=== PATIENT | female | born 1935 | race Hispanic/Latino ===

== ENCOUNTER 2017-01-14 21:10 | Emergency (ER) | payer MEDICARE ==
[2017-01-14 21:20] VITALS: BMI 37.3
[2017-01-14 21:25] VITALS: BP 159/93; PULSE 75; RESP 18; O2SAT 96
--- NOTE | 2017-01-14 21:27 | ED PDOC ---
Arrival/HPI - General Chief Complaint: Lower Extremity Problem/Injury Time Seen by Provider: 01/14/17 21:23 Historian: Patient - History of Present Illness Narrative History of Present Illness (Text): 01/14/17 21:23 81 y/o female, pmh including htn, allergic to statins/macrolids and fluoroquinolones, c/o lt. foot 2nd digit toe pain x 2 days s/p staple gun dropped and hit on the lt. foot 2nd toe without shoe on. Pt. stated that she re injured it today with shoe on by another person step on the lt. foot 2nd toe , able to bear weight but with pain, no numbness or tingling, no skin breaking, no rash, no calf pain, no other medical or psychological complaints. Past Medical History - Provider Review Nursing Documentation Reviewed: Yes - Infectious Disease Hx of Infectious Diseases: None - Tetanus Immunization Tetanus Immunization: Unknown - Cardiac Hx Cardiac Disorders: Yes Hx Hypertension: Yes - Pulmonary Hx Respiratory Disorders: Yes Hx Chronic Obstructive Pulmonary Disease (COPD): Yes Hx Pneumonia: Yes (x 6) - Neurological Hx Neurological Disorder: No - HEENT Hx HEENT Disorder: No Hx Cataracts: Yes - Hematological/Oncological Hx Cancer: Yes (SKIN CA/face) - Integumentary Hx Dermatological Disorder: No - Musculoskeletal/Rheumatological Hx Arthritis: Yes - Gastrointestinal Hx Clostridium Difficile: Yes Hx Diverticulitis: Yes Other/Comment: infection in intestines; hernia x 3 - Genitourinary/Gynecological Hx Genitourinary Disorders: No - Psychiatric Hx Psychophysiologic Disorder: No Hx Substance Use: No - Surgical History Hx Cataract Extraction: Yes Hx Eye Surgery: Yes Hx Orthopedic Surgery: Yes (heel) Hx Tonsillectomy: Yes Other/Comment: laser eye surgery - Anesthesia Hx Anesthesia: Yes Hx Anesthesia Reactions: Yes Hx Malignant Hyperthermia: No - Suicidal Assessment Feels Threatened In Home Enviroment: No Family/Social History - Physician Review Nursing Documentation Reviewed: Yes Family/Social History: Unknown Family HX Smoking Status: Former Smoker Hx Alcohol Use: No Hx Substance Use: No Hx Substance Use Treatment: No Allergies/Home Meds Allergies/Adverse Reactions: Allergies azithromycin [From Zithromax] Allergy (Verified 10/16/15 18:51) ITCHING ciprofloxacin [From Cipro] Allergy (Verified 10/16/15 18:51) ITCHING simvastatin Allergy (Verified 10/16/15 18:51) ITCHING Home Medications: Home Meds Medication Instructions Recorded Confirmed Losartan Potassium [Cozaar] 100 mg PO DAILY 10/16/15 01/14/17 Ranitidine HCl [Zantac] 150 mg PO DAILY 10/16/15 01/14/17 Review of Systems - Review of Systems Constitutional: absent: Fatigue, Fevers Eyes: absent: Vision Changes ENT: absent: Hearing Changes Respiratory: absent: SOB, Cough Cardiovascular: absent: Chest Pain Gastrointestinal: absent: Abdominal Pain, Nausea, Vomiting Musculoskeletal: Arthralgias, Myalgias. absent: Back Pain, Neck Pain, Joint Swelling Skin: absent: Rash, Pruritis Neurological: absent: Headache, Dizziness Physical Exam Vital Signs Reviewed: Yes Vital Signs Temp Pulse Resp BP Pulse Ox 01/14/17 22:22 98.0 F 01/14/17 21:25 75 18 159/93 H 96 Temperature: Afebrile Blood Pressure: Normal Pulse: Regular Respiratory Rate: Normal Appearance: Positive for: Well-Appearing, Non-Toxic, Comfortable Pain Distress: Moderate Mental Status: Positive for: Alert and Oriented X 3 - Systems Exam Head: Present: Atraumatic, Normocephalic Pupils: Present: PERRL Extroacular Muscles: Present: EOMI Conjunctiva: Present: Normal Mouth: Present: Moist Mucous Membranes Neck: Present: Normal Range of Motion Respiratory/Chest: Present: Clear to Auscultation, Good Air Exchange. No: Respiratory Distress, Accessory Muscle Use Cardiovascular: Present: Regular Rate and Rhythm, Normal S1, S2. No: Murmurs Abdomen: Present: Normal Bowel Sounds. No: Tenderness, Distention, Peritoneal Signs Back: Present: Normal Inspection Upper Extremity: Present: Normal Inspection. No: Cyanosis, Edema Lower Extremity: Present: Normal Inspection, Other (Lt foot: +ttp on the 2nd digit toe with skin intact, no laceration or abrasion, FROM without limitation, sensation intact, motor 5/5, +DPPT pulses, capillary refill<2 seconds, neurovascular intact. ). No: Edema Neurological: Present: GCS=15, Speech Normal, Motor Func Grossly Intact, Gait Normal, Memory Normal Skin: Present: Warm, Dry, Normal Color. No: Rashes Psychiatric: Present: Alert, Oriented x 3, Normal Insight, Normal Concentration Medical Decision Making ED Course and Treatment: 01/14/17 21:28 -lt. foot 2nd digit xray -pt. refused pain med -observe and reassess 01/14/17 22:20 -xray confirmed the fracture, monty tapping and post op shoe, not a crutches candidate and preferred cane. -Discharge home with monty tapping, post op shoe, crutches, take over the counter pain medication including tylenol as needed, follow up with your own pmd and dry starch operator within 2 days, return to the ER for any new or worsening signs or symptoms. - RAD Interpretation Radiology Orders: 01/14/17 21:27 FOOT LEFT 2ND DIGIT (TOE) [RAD] Stat PROCEDURE: Left Foot Radiographs. HISTORY: lt. foot 2nd toe pain COMPARISON: None. FINDINGS: BONES: There is an acute nondisplaced fracture in the neck of the proximal phalanx of the 2nd toe with surrounding soft tissue swelling. There is diffuse bone demineralization. JOINTS: Normal. SOFT TISSUES: Normal. OTHER FINDINGS: None. IMPRESSION: Acute nondisplaced fracture in the neck of the proximal phalanx of the 2nd toe with surrounding soft tissue swelling. Bakery Chef: Radiologist - PA / CONTRACT SPECIALIST / Resident Statement / has reviewed & agrees with the documentation as recorded. Disposition/Present on Arrival - Present on Arrival Any Indicators Present on Arrival: No History of DVT/PE: No History of Uncontrolled Diabetes: No Urinary Catheter: No History of Decub. Ulcer: No History Surgical Site Infection Following: None - Disposition Have Diagnosis and Disposition been Completed?: Yes Diagnosis: Toe injury, Toe pain, Toe fracture Disposition: HOME/ ROUTINE Disposition Time: 21:29 Patient Plan: Discharge Condition: GOOD Additional Instructions: -Discharge home with monty tapping, post op shoe, crutches, take over the counter pain medication including tylenol as needed, follow up with your own pmd and dry starch operator within 2 days, return to the ER for any new or worsening signs or symptoms. Prescriptions: Acetaminophen [Tylenol Extra Strength] 500 mg PO QID PRN #30 tablet PRN Reason: Other Referrals: Flo Bagley MD [Primary Care Provider] - Follow up with primary Chandu Chairez DPM [Staff Provider] - Follow up with primary Forms: [employer] (Mozambican)
[2017-01-14 22:22] VITALS: TEMP 98
--- NOTE | 2017-01-15 11:16 | RAD ---
PROCEDURE: Left Foot Radiographs. HISTORY: lt. foot 2nd toe pain COMPARISON: None. FINDINGS: BONES: There is an acute nondisplaced fracture in the neck of the proximal phalanx of the 2nd toe with surrounding soft tissue swelling. There is diffuse bone demineralization. JOINTS: Normal. SOFT TISSUES: Normal. OTHER FINDINGS: None. IMPRESSION: Acute nondisplaced fracture in the neck of the proximal phalanx of the 2nd toe with surrounding soft tissue swelling.
== END 2017-01-14 23:45 | disposition home or self-care (01) ==
LOC: ED 21:10
DX: S92.515A Nondisplaced fracture of proximal phalanx of left lesser toe(s), initial encounter for closed fracture (principal); W20.8XXA Other cause of strike by thrown, projected or falling object, initial encounter; M79.672 Pain in left foot

== ENCOUNTER 2017-04-20 11:22 | Observation (INO) | payer MEDICARE ==
[2017-04-20 11:33] VITALS: BMI 38.4
[2017-04-20] MEDS ORDERED: Morphine 4 mg/ml ISec IVP STA (11:49)
[2017-04-20] MEDS ORDERED: Sodium Chloride 0.9% 500 ML IV STA (11:49)
--- NOTE | 2017-04-20 12:00 | ED PDOC ---
Arrival/HPI - General Chief Complaint: Abdominal Pain Time Seen by Provider: 04/20/17 11:38 Historian: Patient, Family (daughter) - History of Present Illness Narrative History of Present Illness (Text): 04/20/17 11:40 Lamar Olson is a 81 year old female, whose past medical history includes hypertension, COPD, and diverticulitis, who presents to the emergency department complaining of abdominal pain since 1 month. Patient reports her PMD advised her to come to the emergency department for evaluation. She states the pain is worse at night and after eating. Additionally, she states the pain has given her nausea and episodic shortness of breath along with epigastric discomfort. Patient also complains of being constipated and her last BM was 1 day ago. Patient denies chest pain, headache, weight loss, fever, chills, cough , vomiting, diarrhea, dysuria, hematuria, frequency, flank pain, or vaginal discharge. PMD: Dr. Bagley Time/Duration: > month Symptom Onset: Gradual Symptom Course: Intermittent Quality: Stabbing, Cramping Severity Level: 10, Severe Modifying Factors (Text): worse at night or after eating Past Medical History - Provider Review Nursing Documentation Reviewed: Yes - Travel History Have you recently traveled outside [place] w/in the past 3 mons?: No - Infectious Disease Hx of Infectious Diseases: None - Tetanus Immunization Tetanus Immunization: Unknown - Cardiac Hx Cardiac Disorders: Yes Hx Hypertension: Yes - Pulmonary Hx Respiratory Disorders: Yes Hx Chronic Obstructive Pulmonary Disease (COPD): Yes Hx Pneumonia: Yes (x 6) - Neurological Hx Neurological Disorder: No - HEENT Hx HEENT Disorder: No Hx Cataracts: Yes - Hematological/Oncological Hx Cancer: Yes (SKIN CA/face) - Integumentary Hx Dermatological Disorder: No - Musculoskeletal/Rheumatological Hx Arthritis: Yes - Gastrointestinal Hx Clostridium Difficile: Yes Hx Diverticulitis: Yes Other/Comment: infection in intestines; hernia x 3 - Genitourinary/Gynecological Hx Genitourinary Disorders: No - Psychiatric Hx Psychophysiologic Disorder: No Hx Substance Use: No - Surgical History Hx Cataract Extraction: Yes Hx Eye Surgery: Yes Hx Orthopedic Surgery: Yes (heel) Hx Tonsillectomy: Yes Other/Comment: laser eye surgery - Anesthesia Hx Anesthesia: Yes Hx Anesthesia Reactions: Yes Hx Malignant Hyperthermia: No - Suicidal Assessment Feels Threatened In Home Enviroment: No Family/Social History - Physician Review Nursing Documentation Reviewed: Yes Family/Social History: Unknown Family HX Smoking Status: Former Smoker Hx Alcohol Use: No Hx Substance Use: No Hx Substance Use Treatment: No Allergies/Home Meds Allergies/Adverse Reactions: Allergies azithromycin [From Zithromax] Allergy (Verified 04/20/17 11:57) ITCHING ciprofloxacin [From Cipro] Allergy (Verified 04/20/17 11:57) ITCHING simvastatin Allergy (Verified 04/20/17 11:57) ITCHING Home Medications: Home Meds Medication Instructions Recorded Confirmed Losartan Potassium [Cozaar] 100 mg PO DAILY 10/16/15 04/20/17 Furosemide [Lasix] 20 mg PO PRN PRN 04/20/17 04/20/17 Review of Systems - Review of Systems Constitutional: absent: Weight Change, Fevers Eyes: absent: Vision Changes Respiratory: SOB (episodic due to abdominal pain ). absent: Cough Cardiovascular: absent: Chest Pain Gastrointestinal: Abdominal Pain (right quadrant and epigastric region ), Stool Changes, Constipation. absent: Diarrhea, Vomiting Genitourinary Female: absent: Dysuria, Frequency, Hematuria Musculoskeletal: absent: Back Pain Skin: absent: Rash Neurological: absent: Headache, Dizziness Endocrine: absent: Diaphoresis, Polydipsia Physical Exam Vital Signs Reviewed: Yes Vital Signs Temp Pulse Resp BP Pulse Ox 04/20/17 16:27 71 18 172/95 H 99 04/20/17 16:23 172/95 H 04/20/17 14:34 68 18 165/97 H 97 04/20/17 11:50 98.2 F 67 18 167/85 H 96 Temperature: Afebrile Blood Pressure: Hypertensive Pulse: Regular Respiratory Rate: Normal Appearance: Positive for: Well-Appearing, Non-Toxic, Other (resting in bed, cooperative, uncomfortable, mild-moderate distress due to pain; alert/awake) Pain Distress: Moderate Mental Status: Positive for: Alert and Oriented X 3 - Systems Exam Head: Present: Atraumatic, Normocephalic Pupils: Present: PERRL, Other (no photophobia, sclera anicteric, no nystagmus, visual field intact b/l) Extroacular Muscles: Present: EOMI Conjunctiva: Present: Normal Mouth: Present: Moist Mucous Membranes, Other (fair dentitions, no drooling/ stridor, no exudate/lesion, no dysphonia) Pharnyx: Present: Normal Neck: Present: Normal Range of Motion Respiratory/Chest: Present: Good Air Exchange, Other (coarse breath sounds bibasiliar, no wheezing/rales/rhonic, no tachypenia, no accessory muscle use noted). No: Respiratory Distress, Accessory Muscle Use, Wheezes, Rales, Rhonchi Cardiovascular: Present: Regular Rate and Rhythm, Normal S1, S2. No: Murmurs Abdomen: Present: Normal Bowel Sounds, Other (diffuse lower abd tenderness, no daniel's sign, no mcburney's point tenderness, + left lower abd tenderness, well nourished/obese female, no rebound/guarding/rigidity). No: Tenderness, Distention, Peritoneal Signs Back: Present: Normal Inspection Upper Extremity: Present: Normal Inspection, Normal ROM, NORMAL PULSES, Neurovascularly Intact, Capillary Refill < 2s. No: Cyanosis, Edema, Tenderness , Swelling, Erythema, Deformity Lower Extremity: Present: Normal Inspection, Edema, NORMAL PULSES, Normal ROM, Capillary Refill < 2 s. No: CALF TENDERNESS, Te's Sign, Deformity Neurological: Present: GCS=15, CN II-XII Intact, Speech Normal Skin: Present: Warm, Dry, Normal Color, Other (cap refill ~ 1 sec, no ulcerations, no petechiae). No: Rashes Psychiatric: Present: Alert, Oriented x 3, Normal Insight, Normal Concentration Medical Decision Making ED Course and Treatment: 04/20/17 12:04 Impression: 81 year old female with abdominal pain Differential Diagnosis included but are not limited to: Plan: -- CT abdomen and pelvis -- EKG -- Chest X-ray -- Labs -- Urinalysis -- Morphine, Zofran, Sodium Chloride -- Reassess and disposition Progress Notes: 04/20/17 12:28 Prior EK01/04/2013 04/20/17 12:[address] Bagley, who wanted an update on the patient, agrees with ED mgt /txt/dx and suggests to add BNP/xray for concern of pulm causes of pt's medical complaints 04/20/17 16:01 pt is currently feeling some improvement from abd pain but now felt sob and with persistent weakness pt/family are made aware of pt's medical results i recommend patient for admission given that her symptoms now morphed into sob/ weakness, and i am concern for cardiac origin of pt's currently complaints pt does not want to be admitted because tomorrow is pt's birthday pt is currently thinking it over paging Dr Bagley 04/20/17 16:[address] Lillie Bagley, made aware of pt's medical complaints, agrees with ED mg/txt, and agrees with recommendation for admission; would like Dr Glez for cards consult pt/family are made aware of pt's medical results pt AGREES with ADMISSION/observation Reassessment Condition: Improving,but remains with symptoms - Critical Care Critical Care Minutes: 30 minutes Critical Care Time: Excluding Proc Time Narrative Critical Care (Text): 04/20/17 16:22 critical care time: 30min, excluding procedure time, excluding time teaching residents/students/mid-level providers; including initial eval/diagnosis, diagnostic interpretation, re-eval, consultations, final disposition - Lab Interpretations Lab Results: 04/20/17 12:00 04/20/17 12:00 Lab Results 04/20/17 15:18: Urine Color Yellow, Urine Appearance Clear, Urine pH 6.0, Ur Specific [place] 1.015, Urine Protein 30 H, Urine Glucose (UA) Negative, Urine Ketones Negative, Urine Blood Negative, Urine Nitrate Negative, Urine Bilirubin Negative, Urine Urobilinogen 0.2, Ur Leukocyte Esterase Small H, Urine RBC 0 - 2 , Urine WBC 5 - 10, Ur Epithelial Cells 4 - 5, Urine Bacteria Few 04/20/17 12:00: NT-Pro-B Natriuret Pep 461 H 04/20/17 12:00: Sodium 140, Potassium 4.4, Chloride 104, Carbon Dioxide 29, Anion Gap 12, BUN 24 H, Creatinine 0.9, Est GFR ( Amer) > 60, Est GFR ( Non-Af Amer) > 60, Random Glucose 95, Calcium 10.2, Total Bilirubin 0.6, AST 27 , ALT 31, Alkaline Phosphatase 96, Total Protein 7.6, Albumin 4.0, Globulin 3.6 , Albumin/Globulin Ratio 1.1, Lipase 59 04/20/17 12:00: PT 13.8 H, INR 1.25 H 04/20/17 12:00: WBC 6.1, RBC 4.71, Hgb 12.2, Hct 38.8, MCV 82.4, MCH 25.9, MCHC 31.4, RDW 16.2 H, Plt Count 196, MPV 8.9, Gran % 50.3, Lymph % (Auto) 36.8 H, [place] % (Auto) 9.5 H, Eos % (Auto) 3.1, Baso % (Auto) 0.3, Gran # 3.05, Lymph # 2.2, [place] # 0.6, Eos # 0.2, Baso # 0.02 elevated BNP I have reviewed the lab results: Yes Interpretation: Abnormal lab values (elevated BNP) - RAD Interpretation Narrative RAD Interpretations (Text): 04/20/17 15:52 FINDINGS: LOWER THORAX: Cardiomegaly. Bibasilar atelectasis/scarring. LIVER: Unremarkable. No gross lesion or ductal dilatation. GALLBLADDER AND BILE DUCTS: Dependent cholelithiasis without gallbladder wall thickening/ edema or pericholecystic fluid. PANCREAS: Fatty atrophy. No gross lesion or ductal dilatation. SPLEEN: Unremarkable. ADRENALS: Unremarkable. No mass. KIDNEYS AND URETERS: Numerous bilateral cortical and parapelvic cysts. No hydronephrosis. No solid mass. VASCULATURE: Calcific atherosclerosis. No aortic aneurysm. BOWEL: Colonic diverticulosis without diverticulitis. No obstruction. No gross mural thickening. APPENDIX: Normal appendix. PERITONEUM: Unremarkable. No free fluid. No free air. LYMPH NODES: Unremarkable. No enlarged lymph nodes. BLADDER: Unremarkable. REPRODUCTIVE: Uterus not visualized. BONES: Extensive spinal and pelvic degenerative changes. OTHER FINDINGS: None. IMPRESSION: No acute abdominal pelvic pathology Chronic findings as above. Radiology Orders: 04/20/17 11:46 ABD PELVIS PO & IV CONTRAST [CT] Stat 04/20/17 11:51 CHEST TWO VIEWS (PA/LAT) [RAD] Stat CXR FINDINGS: LUNGS: No active pulmonary disease. PLEURA: No significant pleural effusion identified. No pneumothorax apparent. CARDIOVASCULAR: Cardiomegaly. Bilateral hilar prominence. In retrospect, correlating with CT chest 11/17/2016, there is dilatation of the main pulmonary artery and right and left pulmonary artery. OSSEOUS STRUCTURES: No significant abnormalities. VISUALIZED UPPER ABDOMEN: Normal. OTHER FINDINGS: None. IMPRESSION: No acute infiltrate. Cardiomegaly. Statistical Machine Servicer: Radiologist - EKG Interpretation EKG Interpretation (Text): 04/20/17 16:24 SR at 70 bpm, 1st degree av block, normal axis, no ectopy, RBBB, inverted T in leads V1-2, no st changes, ABNL EKG; no changes compare with old ekg 12/201204/20/17 16:30 Interpreted by ED Physician: Yes Type: 12 lead EKG Comparison: Similar to previous EKG - Medication Orders Current Medication Orders: Discontinued Medications Albuterol/Ipratropium (Duoneb 3 Mg/0.5 Mg (3 Ml) Ud) 3 ml IH STAT STA Stop: 04/20/17 16:18 Last Admin: 04/20/17 16:27 Dose: 3 ml Aspirin (Aspirin Chewable) 81 mg PO STAT STA Stop: 04/20/17 16:16 Last Admin: 04/20/17 16:27 Dose: 81 mg Furosemide (Lasix) 40 mg IVP STAT STA Stop: 04/20/17 16:01 Last Admin: 04/20/17 16:23 Dose: 40 mg MAR Blood Pressure Document 04/20/17 16:23 OCS (Rec: 04/20/17 16:27 OCS [id number]) Blood Pressure Blood Pressure (100/60-150/90) 172/95 IVP Administration Document 04/20/17 16:23 OCS (Rec: 04/20/17 16:27 OCS [id number]) Charges for Administration # of IVP Administrations 1 Sodium Chloride (Sodium Chloride 0.9%) 500 mls @ 999 mls/hr IV .Q31M STA Stop: 04/20/17 12:19 Last Admin: 04/20/17 12:27 Dose: 999 mls/hr eMAR Start Stop Document 04/20/17 12:27 SC (Rec: 04/20/17 12:28 [id number] Intravenous Solution Start Date 04/20/17 Start Time 12:28 End Date 04/20/17 End time 13:30 Total Infusion Time 62 Morphine Sulfate (Morphine) 4 mg IVP STAT STA Stop: 04/20/17 11:50 Last Admin: 04/20/17 12:27 Dose: 4 mg MAR Pain Assessment Document 04/20/17 12:27 SC (Rec: 04/20/17 12:27 SC [id number]) Pain Reassessment Is this a pain reassessment? No Sleep Is patient sleeping during reassessment? No Presence of Pain Presence of Pain Yes Pain Scale Used Pain Scale Used Numeric Location Pain Location Body Site Abdomen Description Description Constant Intensity of Pain at present 7 IVP Administration Document 04/20/17 12:27 SC (Rec: 04/20/17 12:27 [id number]) Charges for Administration # of IVP Administrations 1 Ondansetron HCl (Zofran Inj) 4 mg IVP STAT STA Stop: 04/20/17 11:50 Last Admin: 04/20/17 12:28 Dose: 4 mg IVP Administration Document 04/20/17 12:28 SC (Rec: 04/20/17 12:28 [id number]) Charges for Administration # of IVP Administrations 1 - Scribe Statement The provider has reviewed the documentation as recorded by the Scribe Angeli Smith Provider Scribe Attestation: All medical record entries made by the Scribe were at my direction and personally dictated by me. I have reviewed the chart and agree that the record accurately reflects my personal performance of the history, physical exam, medical decision making, and the department course for this patient. I have also personally directed, reviewed, and agree with the discharge instructions and disposition. Disposition/Present on Arrival - Present on Arrival Any Indicators Present on Arrival: No History of DVT/PE: No History of Uncontrolled Diabetes: No Urinary Catheter: No History Surgical Site Infection Following: None - Disposition Have Diagnosis and Disposition been Completed?: Yes Diagnosis: Acute CHF (congestive heart failure), Intractable abdominal pain Disposition: HOSPITALIZED Disposition Time: 16:10 Patient Plan: Admission, Observation Condition: STABLE Discharge Instructions (ExitCare): Heart Failure (ED) Referrals: Flo Bagley MD [Primary Care Provider] - Follow up with primary Forms: [employer] (Italian)
[2017-04-20] MEDS ORDERED: Iohexol 240 (50 ml) ONE (12:19)
[2017-04-20 12:21] LABS: BASO # 0.02 K/mm3 (0.0-2.0); BASO % 0.3 % (0.0-3.0); EOS # 0.2 (0.0-0.7); EOS % 3.1 % (1.5-5.0); GRAN # 3.05 (1.4-6.5); GRAN % 50.3 % (50.0-68.0); HEMATOCRIT 38.8 % (36.0-48.0); LYMPH # 2.2 (1.2-3.4); LYMPH % 36.8 % (22.0-35.0); MEAN CELL VOLUME 82.4 fl (80.0-105.0); MEAN CORPUSCULAR HEMOGLOBIN 25.9 pg (25.0-35.0); MEAN CORPUSCULAR HGB CONC 31.4 g/dl (31.0-37.0); MEAN PLATELET VOLUME 8.9 fl (7.0-11.0); MONO # 0.6 (0.1-0.6); MONO % 9.5 % (1.0-6.0); RED CELL DISTRIBUTION WIDTH 16.2 % (11.5-14.5); WHITE BLOOD COUNT 6.1 10^3/ul (4.5-11.0)
[2017-04-20 12:27] LABS: INR 1.25 (0.93-1.08)
[2017-04-20 12:33] LABS: ALB/GLOB RATIO 1.1 (1.1-1.8); ALKALINE PHOSPHATASE 96 U/L (38-126); ALT/SGPT 31 U/L (7-56); AST/SGOT 27 U/L (14-36); BILIRUBIN,TOTAL 0.6 mg/dL (0.2-1.3); BLOOD UREA NITROGEN 24 mg/dL (7-21); CALCIUM 10.2 mg/dL (8.4-10.5); CARBON DIOXIDE 29 mmol/L (21-33); CHLORIDE 104 mmol/L (98-107); GFR AFRICAN-AMERICAN > 60; GLUCOSE,RANDOM 95 mg/dL (70-110); LIPASE 59 U/L (23-300); POTASSIUM 4.4 mmol/L (3.6-5.0); SODIUM 140 mmol/L (132-148); TOTAL PROTEIN 7.6 g/dL (5.8-8.3)
[2017-04-20 15:26] LABS: URINE BILIRUBIN NEGATIVE (NEGATIVE); URINE BLOOD NEGATIVE (NEGATIVE); URINE GLUCOSE (UA) NEGATIVE (NEGATIVE); URINE KETONE NEGATIVE (NEGATIVE); URINE LEUKOCYTE ESTERASE SMALL Leu/uL (NEGATIVE); URINE PROTEIN 30 mg/dL (<30 mg/dL); URINE UROBILINOGEN 0.2 E.U./dL (<1 E.U./dL)
[2017-04-20 15:42] LABS: URINE APPEARANCE CLEAR (CLEAR); URINE COLOR YELLOW (YELLOW)
--- NOTE | 2017-04-20 15:49 | CT ---
PROCEDURE: CT Abdomen and Pelvis with contrast HISTORY: 1 month of diffuse lower abd pain, worsening COMPARISON: None. TECHNIQUE: Contrast dose: 150 mL Omnipaque 350 Radiation dose: Total exam DLP = 1073.6 mGy-cm. This CT exam was performed using one or more of the following dose reduction techniques: Automated exposure control, adjustment of the mA and/or kV according to patient size, and/or use of iterative reconstruction technique. FINDINGS: LOWER THORAX: Cardiomegaly. Bibasilar atelectasis/scarring. LIVER: Unremarkable. No gross lesion or ductal dilatation. GALLBLADDER AND BILE DUCTS: Dependent cholelithiasis without gallbladder wall thickening/ edema or pericholecystic fluid. PANCREAS: Fatty atrophy. No gross lesion or ductal dilatation. SPLEEN: Unremarkable. ADRENALS: Unremarkable. No mass. KIDNEYS AND URETERS: Numerous bilateral cortical and parapelvic cysts. No hydronephrosis. No solid mass. VASCULATURE: Calcific atherosclerosis. No aortic aneurysm. BOWEL: Colonic diverticulosis without diverticulitis. No obstruction. No gross mural thickening. APPENDIX: Normal appendix. PERITONEUM: Unremarkable. No free fluid. No free air. LYMPH NODES: Unremarkable. No enlarged lymph nodes. BLADDER: Unremarkable. REPRODUCTIVE: Uterus not visualized. BONES: Extensive spinal and pelvic degenerative changes. OTHER FINDINGS: None. IMPRESSION: No acute abdominal pelvic pathology Chronic findings as above.
[2017-04-20 15:53] LABS: URINE RBC 0 - 2 /hpf (0-2)
[2017-04-20 15:54] LABS: URINE BACTERIA FEW (NEG)
--- NOTE | 2017-04-20 16:01 | RAD ---
HISTORY: epigastric pain COMPARISON: 08/29/2016 TECHNIQUE: Chest PA and lateral FINDINGS: LUNGS: No active pulmonary disease. PLEURA: No significant pleural effusion identified. No pneumothorax apparent. CARDIOVASCULAR: Cardiomegaly. Bilateral hilar prominence. In retrospect, correlating with CT chest 11/17/2016, there is dilatation of the main pulmonary artery and right and left pulmonary artery. OSSEOUS STRUCTURES: No significant abnormalities. VISUALIZED UPPER ABDOMEN: Normal. OTHER FINDINGS: None. IMPRESSION: No acute infiltrate. Cardiomegaly.
[2017-04-20] MEDS ORDERED: Albuterol-Ipratrop 3 mg / 0.5 (3 ml) UD IH STA (16:17)
[2017-04-21] MEDS ORDERED: Alum-Mag Hydrox-Simethicone Susp (30 mL) PO ONE (03:39)
--- NOTE | 2017-04-21 09:15 | CARD ---
APPROVED REPORT EKG Measurement Heart [id number] <Conclusion> Normal sinus rhythm Right bundle branch block C/W ECG 01/04/13: the lateral T waves are upright now.
--- NOTE | 2017-04-21 09:51 | CARD ---
APPROVED REPORT EKG Measurement Heart [id number] <Conclusion> Normal sinus rhythm with first degree AVB BLK Possible Left atrial enlargement Right bundle branch block T waves now biphasic V 4 - 6
[2017-04-21] MEDS ORDERED: Iodixanol 320 MG/ML 100 ML BOTTLE IV ONE (14:02)
--- NOTE | 2017-04-21 15:09 | PN ---
DATE: SUBJECTIVE: The patient was seen following morning after some diuresis. The patient is having an echo done who seen in consultation by Dr. Abreu. Her troponins were negative. Her BNP was elevated. She is having an echo and a CT angio of the chest to rule out pulmonary embolism. She has dilated pulmonary artery. The patient is less short of breath this morning and is still arousable. OBJECTIVE: ABDOMEN: Abdomen is nondistended, less tender. EXTREMITIES: No cyanosis, no clubbing, no edema. NEUROLOGIC: Grossly intact. IMPRESSION AND PLAN: Congestive heart failure, acute systolic. Pending echo and CT of the chest to rule out pulmonary embolism. Continue diuresis and follow her for effects of contrast. Flo Bagley MD
[2017-04-22 00:30] VITALS: RESP 20; O2SAT 94
--- NOTE | 2017-04-22 08:24 | CP.PCM.PN ---
Subjective - Date & Time of Evaluation Date of Evaluation: 04/22/17 Time of Evaluation: 07:00 - Subjective Subjective: Stable on 3R. She feels better. Had enema and BM's yesterday. No CP or SOB. V/S noted. PE: Lungs: clear Cor.: S1S2, DAGMAR Abd.: soft Ext.: no edema Neuro.; alert ECG 04/21: RSR, RBBB. No change Trop 04/21: 0.03 Echo done but was a poor quality study. Objective - Vital Signs/Intake and Output Vital Signs (last 24 hours): Temp Pulse Resp BP Pulse Ox 98.4 F 74 20 160/98 H 94 L 04/22/17 07:33 04/22/17 07:33 04/22/17 07:33 04/22/17 07:33 04/22/17 07:33 Intake and Output: 04/22/17 04/22/17 06:59 18:59 Intake Total 1555 Balance 1555 - Medications Medications: Current Medications Furosemide (Lasix) 20 mg PO DAILY PRN PRN Reason: Swelling Losartan Potassium (Cozaar) 100 mg PO DAILY SALVADOR Last Admin: 04/21/17 11:27 Dose: 100 mg - Labs Labs: PT 13.8 SECONDS (9.4-12.5) H 04/20/17 12:00 INR 1.25 (0.93-1.08) H 04/20/17 12:00 Assessment and Plan - Assessment and Plan (Free Text) Assessment: Abdominal Pain, Constipation Dyspnea HBP COPD Obesity Skin cancer Cataracts Plan: Will repeat echo, perhaps as an out patient given Await Lung scan ordered to r/o PE OOB ad albina. OK for D/C home with out-pt. F/U and repeat echocardiogram (if V/Q is low prob.) .
--- NOTE | 2017-04-22 09:12 | CARD ---
APPROVED REPORT EXAM: Two-dimensional and M-mode echocardiogram with Doppler and color Doppler. Other Information Quality : Very PoorRhythm : INDICATION Aortic Valve Disease Dyspnea 2D DIMENSIONS IVSd1.6 (0.7-1.1cm)LVDd4.0 (3.9-5.9cm) PWd1.5 (0.7-1.1cm)LVDs3.0 (2.5-4.0cm) FS (%) 25.6 %LVEF (%)51.0 (>50%) M-Mode DIMENSIONS Left Atrium (MM)4.60 (2.5-4.0cm)Aortic Root3.50 (2.2-3.7cm) Aortic Cusp Exc.1.40 (1.5-2.0cm) Aortic Valve AoV Peak Gqszynbn946.0cm/Meaghan Peak GR.17mmHg Mitral Valve MV E Bexqywks26.7cm/sMV A Pbgnompg21.3cm/sE/A ratio0.7 TDI Lateral E' Peak V6.43cm/sMedial E' Peak V4.48cm/sE/Lateral E'10.1 E/Medial E'14.4 Tricuspid Valve TR Peak Bfowfzxm936kk/sRAP VPMPMPXV34sxFpEM Peak Gr.37mmHg [id number] <Conclusion> This is a very poor study.Very little usefull information is obtained. The AV is heavily calcified. The severeity of cannot be determined. No MS. LV size is probably normal. I cannot assess LV contractility. Normal RV size. Suggest repeat study.
--- NOTE | 2017-04-22 13:52 | PN ---
DATE: SUBJECTIVE: An -[id number] white female admitted to the hospital with abdominal pain, shortness of breath, acute systolic congestive heart failure and found to have aortic stenosis, also found to have elevated D-dimer 300. Attempted CT, PE protocol yesterday; however, IV in the left arm infiltrated. Dye extravasated and causing some cellulitis of the left upper extremity. The test was canceled, the patient was scheduled for V/Q scan in place. The patient's BNP has dropped from 600 to 245. The patient has mild shortness of breath, still has some rales at both bases. PHYSICAL EXAMINATION: HEART: Regular sinus rhythm, but systolic ejection murmur. Patient is seeing Dr. Abreu. Echo was done. EXTREMITIES: No cyanosis, clubbing or edema. The patient is complaining of left upper extremity pain and some less mild shortness of breath. Continues complaining of lower abdominal pain. CT of the abdomen was negative. Flo Bagley MD
--- NOTE | 2017-04-22 14:56 | NM ---
COMPARISON: 04/20/2017 TECHNIQUE: 38.6 mCi technetium 99-m DTPA aerosol. 5.8 mCI technetium 99-m MAA administered intravenously. FINDINGS: VENTILATION COMPONENT: Heterogeneous ventilation. Retention of radionuclide in the tracheobronchial tree and ingestion of radionuclide in the stomach, incidental findings PERFUSION COMPONENT: Heterogeneous distribution of radionuclide. No geographic, segmental, lobar abnormalities apparent on the present examination. IMPRESSION: Low probability ventilation perfusion scan for pulmonary embolism.
[2017-04-22 16:48] VITALS: BP 167/95; PULSE 68; TEMP 99.8
--- NOTE | 2017-04-23 00:19 | HP ---
HISTORY OF PRESENT ILLNESS: The patient is an 82-year-old white female with history of hypertension and admitted to the hospital with abdominal pain and shortness of breath. The patient was seen in the office complaining of lower abdominal pain and some nausea, and also complaining of shortness of breath. The patient was found to have rales at both bases, was directed to ER for CAT scan of the abdomen to rule out acute abdominal symptomatology. The patient was found to have an elevated BNP. CT of the abdomen was essentially unremarkable. The patient was found to have rales at both bases with an elevated BNP consistent with congestive heart failure and systolic ejection murmur. The patient was admitted to the hospital for diuresis and for further workup. PHYSICAL EXAMINATION GENERAL: A well-developed, overweight woman in mild respiratory distress. HEENT: Essentially within normal limits. HEART: Regular sinus rhythm with systolic ejection murmur at the left sternal border with positive S3 and positive S4. LUNGS: There are rales at both bases bilaterally. ABDOMEN: Tender in the inferior suprapubic region. There is no guarding and no rebound. Bowel sounds are hypoactive. There are no masses palpable. There is mid suprapubic scar. No hernias are noted. EXTREMITIES: No cyanosis, clubbing, or edema. NEUROLOGIC: Grossly intact. IMPRESSION: Acute systolic congestive heart failure, possible hepatic congestion, abdominal pain, and systolic ejection murmur in an 82-year-old white female. Flo Bagley MD
--- NOTE | 2017-04-24 08:05 | CON ---
DATE: 04/21/2017 CONSULTATION INDICATIONS: Shortness of breath. HISTORY OF PRESENT ILLNESS: This is an 82-year-old woman known to our practice admitted with initial complaints abdominal pain, which had been present for at least several days, which was associated with epigastric discomfort, nausea, and constipation. She has undergone evaluation with ultrasound. She is being evaluated for liver problems. When in the emergency room, she also complained of shortness of breath. She has a history of COPD. Chest x-ray was done. She was admitted for further evaluation. This morning she is resting comfortably in bed on 3R without chest pain, shortness of breath, or abdominal pain at the moment. There is no orthopnea, PND, syncope, presyncope, lightheadedness, dizziness, vertigo, palpitation, edema, claudication, rigor, sweats, cough, sputum production, or hemoptysis. PAST MEDICAL HISTORY: Notable for chronic abdominal symptoms. She has diverticulitis. She has COPD and multiple pneumonias. She has hypertension and history of skin cancer. She is followed in our office by Dr. Nath. She denies myocardial infarction, coronary artery disease, and stents. She has periodic echocardiograms. There is no history of rheumatic fever, diabetes, stroke, TIA, or gout. MEDICATIONS: At the time of admission her medications were losartan and Lasix. ALLERGIES: SHE NOTES AN ALLERGY TO ZITHROMAX, CIPRO, AND SIMVASTATIN. FAMILY HISTORY: Noncontributory. SOCIAL HISTORY: She is a former remote smoker. She does not drink alcohol. She lives at home with her . She is ambulatory. REVIEW OF SYSTEMS: Ten-point review of systems is otherwise unremarkable, except as noted above. PHYSICAL EXAMINATION: GENERAL: She is well-developed woman sitting on her bed in no acute distress. She is in sinus rhythm. VITAL SIGNS: She is afebrile, blood pressure 161/97, respirations 18, O2 saturation 97% to 99% on room air. HEENT: Revels no neck vein distention, thyromegaly, or carotid bruits. Mucous membranes are moist. Conjunctivae pink. Neck is supple. LUNGS: Dyer clear. HEART: Examination of the heart reveals normal first and second heart sounds. PMI is not palpable. ABDOMEN: Obese, soft. Bowel sounds present. No mass, organomegaly, tenderness, rebound, guarding, CVA tenderness, or palpable abdominal aortic aneurysm. EXTREMITIES: Revealed no clubbing, cyanosis or edema. NEUROLOGIC: Awake, alert, and oriented. PSYCHIATRY: Normal as to mood and affect. SKIN: Warm and dry. No rash or cellulitis. LABORATORY AND IMAGING: An abdominal and pelvic CT scan was unremarkable. A PA and lateral chest x-ray revealed. No acute infiltrates or cardiomegaly. EKG demonstrates regular sinus rhythm. Right bundle branch block. ST-T wave changes. No changes from prior EKG. CBC is unremarkable. PT/INR is 15.8 and 1.25. D-dimer elevated at 301. Electrolytes, BUN, creatinine, blood sugar, lactic acid, LFTs are unremarkable. BNP is 461, lipase 59. Urinalysis noted. IMPRESSION AND PLAN: Lamar Olson is an 82-year-old woman admitted chiefly with abdominal pain, which has been somewhat chronic, also noting shortness of breath while in the emergency room. The D-dimer is elevated. CT angiogram is planned for today. I will check a troponin level and repeat her EKG. I will check her office records, when available. She got aspirin. She is getting losartan. She is getting IV fluids. She has got dose of Lasix. She got morphine and Zofran. I will monitor her I's and O's. Check stool for occult blood. I will order an echocardiogram. I will follow along with you. I will make additional recommendations based on clinical course. Yeyo Abreu MD MTDKori
--- NOTE | 2017-04-24 08:11 | HP ---
HISTORY OF PRESENT ILLNESS: The patient is an 82-year-old white female admitted to the hospital with diffuse abdominal pain and shortness of breath. The patient was seen in the office and found to have rales diffuse abdominal pain. She was sent to the ER for evaluation. Upon evaluation, she was found to have elevated BNP, rales at both bases and dilated pulmonary artery in right and left arm mainstem and right and left pulmonary arteries. The patient had a CT of the abdomen, which was negative. She was admitted to the hospital for diuresis and evaluation of possible PE and acute congestive heart failure. PHYSICAL EXAMINATION: GENERAL: She is a well-developed, obese white female in mild respiratory distress. HEENT: Essentially within normal limits. HEART: Regular sinus rhythm systolic ejection murmur at the left sternal border. Had radiation, positive S3, positive S4. No lifts, rubs, heaves, or thrills. CHEST: Shows bibasilar rales. ABDOMEN: Obese, mildly tender in the left and right lower quadrant in the suprapubic area. There is no guarding, no rebound and there is no ascites. EXTREMITIES: Without any cyanosis, clubbing, or edema. NEUROLOGIC: Sensation is grossly intact. IMPRESSION: Acute congestive heart failure, rule out pulmonary embolism, passive transient ischemic congestion in an 82-year-old white female. Flo Bagley MD DT: 04/21/2017 11:49:12
--- NOTE | 2017-04-25 00:19 | DS ---
HISTORY OF PRESENT ILLNESS: The patient is an 82-year-old female admitted to the hospital with acute systolic congestive heart failure, seen in consultation with Dr. Abreu. The patient also had dilated pulmonary artery on x-ray, a V/Q scan was done, which showed low probability of pulmonary embolism. The patient was attempted to have a CT with contrast; however, extravasation of the culture of the fluid material in her left upper extremity causing some cellulitis and some swelling in the left upper extremity. She was treated with warm compressors and antibiotics. The patient did have an echocardiogram done as she was seen in consultation with Dr. Abreu. She also had a CT of the abdomen and pelvis, which was negative. There is a very heavily calcified aortic valve; however, this is cannot be determined. She will need to be follow up as an outpatient with Dr. Abreu's office. Fairly normal LV size; however, was unable to calculate an ejection fraction. The patient eventually after her scan was negative and she was diuresed. She was able to be discharged home in improved condition. She will be followed up as an outpatient. FINAL DISCHARGE DIAGNOSES: Acute systolic congestive heart failure, unexplained abdominal pain possibly congestion from heart failure, aortic stenosis. Flo Bagley MD
== END 2017-04-22 18:09 | disposition home or self-care (01) ==
LOC: ED 11:22 → ERH 16:21 → 3RNO 18:36
PROVIDERS: ADMIT Internal Medicine; ATTEND Internal Medicine
DX: I11.0 Hypertensive heart disease with heart failure (principal); I50.21 Acute systolic (congestive) heart failure; I35.0 Nonrheumatic aortic (valve) stenosis; K59.00 Constipation, unspecified; J44.9 Chronic obstructive pulmonary disease, unspecified; E66.9 Obesity, unspecified; H26.9 Unspecified cataract; L03.114 Cellulitis of left upper limb; Z85.828 Personal history of other malignant neoplasm of skin; Z87.01 Personal history of pneumonia (recurrent); Z87.891 Personal history of nicotine dependence
CPT/HCPCS: 36415; 71020; 74177; 78582; 80053; 81001; 83605; 83690; 83880; 84484; 85025; 85378; 85610; 87086; 93005; 93306; 96361; 96374; 96375; 96376; 99285; G0378; J1940; J2270; J2405; J7040; J7070; Q9966; Q9967

== ENCOUNTER 2017-12-07 06:07 | Inpatient (IN) | payer MEDICARE ==
[2017-12-07 06:35] VITALS: BMI 47.0
[2017-12-07 06:57] LABS: BASO # 0.01 K/mm3 (0.0-2.0); BASO % 0.2 % (0.0-3.0); EOS # 0.1 (0.0-0.7); EOS % 2.7 % (1.5-5.0); GRAN # 2.83 (1.4-6.5); GRAN % 59.1 % (50.0-68.0); HEMOGLOBIN 12.5 g/dL (12.0-16.0); INR 1.19; LYMPH # 1.5 (1.2-3.4); LYMPH % 30.3 % (22.0-35.0); MEAN CELL VOLUME 81.1 fl (80.0-105.0); MEAN CORPUSCULAR HEMOGLOBIN 25.9 pg (25.0-35.0); MEAN PLATELET VOLUME 8.9 fl (7.0-11.0); MONO # 0.4 (0.1-0.6); MONO % 7.7 % (1.0-6.0); PROTHROMBIN TIME 13.7 SECONDS (9.4-12.5); RBC 4.82 10^6/uL (3.5-6.1); RED CELL DISTRIBUTION WIDTH 15.9 % (11.5-14.5); WHITE BLOOD COUNT 4.8 10^3/ul (4.5-11.0)
[2017-12-07 06:58] LABS: VENOUS BLOOD GAS BASE EXCESS 4.4 mmol/L (0.0-2.0); VENOUS BLOOD GAS PO2 39 mm/Hg (30-55); VENOUS BLOOD PH 7.31 (7.32-7.43)
[2017-12-07 07:00] LABS: URINE BILIRUBIN NEGATIVE (NEGATIVE); URINE BLOOD TRACE-INTACT (NEGATIVE); URINE GLUCOSE (UA) NEGATIVE (NEGATIVE); URINE LEUKOCYTE ESTERASE SMALL Leu/uL (NEGATIVE); URINE PROTEIN 100 mg/dL (<30 mg/dL); URINE UROBILINOGEN 0.2 E.U./dL (<1 E.U./dL)
[2017-12-07 07:02] LABS: URINE COLOR YELLOW (YELLOW)
[2017-12-07 07:03] LABS: URINE APPEARANCE CLEAR (CLEAR)
[2017-12-07 07:06] LABS: ALB/GLOB RATIO 1.3 (1.1-1.8); ALBUMIN 4.2 g/dL (3.0-4.8); AST/SGOT 21 U/L (14-36); BLOOD UREA NITROGEN 24 mg/dL (7-21); CALCIUM 9.9 mg/dL (8.4-10.5); GFR AFRICAN-AMERICAN > 60; GFR NON-AFRICAN AMERICAN 53; LIPASE 47 U/L (23-300); URINE BACTERIA OCC (NEG); URINE RBC 0 - 2 /hpf (0-2)
[2017-12-07 07:17] LABS: TROPONIN I < 0.01 ng/mL
[2017-12-07 07:23] LABS: ALT/SGPT < 6 U/L (7-56)
--- NOTE | 2017-12-07 07:25 | ED PDOC ---
Arrival/HPI - General Chief Complaint: GI Problem Time Seen by Provider: 12/07/17 06:36 Historian: Patient - History of Present Illness Narrative History of Present Illness (Text): 12/07/17 07:20 82 year old female, whose PMH includes hypertension, COPD, skin CA, diverticulitis, and hernia, who presents to the emergency department complaining of hematochezia since one day. Patient reports this change in stool was associated with diarrhea and described it as bright red blood in stool. Patient also complaining of abdominal pain mainly on the lower left quadrant. Patient denies fever, dizziness, chest pain, shortness of breath, vomiting, or other complaints. Patient is not taking any blood thinners. Time/Duration: 24 hours Symptom Onset: Sudden Symptom Course: Unchanged Context: Home Past Medical History - Provider Review Nursing Documentation Reviewed: Yes - Infectious Disease Hx of Infectious Diseases: None - Tetanus Immunization Tetanus Immunization: Unknown - Reproductive Menopause: Yes - Cardiac Hx Cardiac Disorders: Yes Hx Hypertension: Yes - Pulmonary Hx Respiratory Disorders: Yes Hx Chronic Obstructive Pulmonary Disease (COPD): Yes Hx Pneumonia: Yes (x 6) - Neurological Hx Neurological Disorder: No - HEENT Hx HEENT Disorder: No Hx Cataracts: Yes - Hematological/Oncological Hx Cancer: Yes (SKIN CA/face) - Integumentary Hx Dermatological Disorder: No - Musculoskeletal/Rheumatological Hx Arthritis: Yes Hx Falls: Yes - Gastrointestinal Hx Diverticulitis: Yes Other/Comment: infection in intestines; hernia x 3 - Genitourinary/Gynecological Hx Genitourinary Disorders: No - Psychiatric Hx Psychophysiologic Disorder: No Hx Substance Use: No - Surgical History Hx Orthopedic Surgery: Yes (heel) Other/Comment: laser eye surgery - Anesthesia Hx Anesthesia: Yes Hx Anesthesia Reactions: Yes Hx Malignant Hyperthermia: No - Suicidal Assessment Feels Threatened In Home Enviroment: No Family/Social History - Physician Review Nursing Documentation Reviewed: Yes Family/Social History: Unknown Family HX Smoking Status: Former Smoker Hx Alcohol Use: No Hx Substance Use: No Hx Substance Use Treatment: No Allergies/Home Meds Allergies/Adverse Reactions: Allergies azithromycin [From Zithromax] Allergy (Verified 12/07/17 06:39) ITCHING ciprofloxacin [From Cipro] Allergy (Verified 12/07/17 06:39) ITCHING simvastatin Allergy (Verified 12/07/17 06:39) ITCHING Home Medications: Home Meds Medication Instructions Recorded Confirmed Losartan Potassium [Cozaar] 100 mg PO DAILY 10/16/15 12/07/17 Review of Systems - Review of Systems Constitutional: absent: Fevers Respiratory: absent: SOB Cardiovascular: absent: Chest Pain Gastrointestinal: Abdominal Pain, Stool Changes, Diarrhea, Hematochezia. absent : Vomiting Genitourinary Female: absent: Dysuria Musculoskeletal: absent: Back Pain Skin: absent: Rash Neurological: absent: Headache, Dizziness Endocrine: absent: Diaphoresis Physical Exam Vital Signs Reviewed: Yes Vital Signs Temp Pulse Resp BP Pulse Ox 12/07/17 13:07 98.0 F 80 18 130/78 98 12/07/17 12:25 98.2 F 79 18 130/89 98 12/07/17 10:00 98.0 F 80 18 98 12/07/17 06:37 98.1 F 76 18 155/73 H 96 Temperature: Afebrile Blood Pressure: Hypertensive Pulse: Regular Respiratory Rate: Normal Appearance: Positive for: Well-Appearing, Non-Toxic, Comfortable Pain Distress: None Mental Status: Positive for: Alert and Oriented X 3 - Systems Exam Head: Present: Atraumatic, Normocephalic Pupils: Present: PERRL Extroacular Muscles: Present: EOMI Conjunctiva: Present: Normal Abdomen: Present: Tenderness (left lower quadrant), Normal Bowel Sounds, Hernias (soft hernia ). No: Distention, Peritoneal Signs, Rebound, Guarding Neurological: Present: GCS=15, CN II-XII Intact, Speech Normal Skin: Present: Warm, Dry, Normal Color. No: Rashes Psychiatric: Present: Alert, Oriented x 3, Normal Insight, Normal Concentration Medical Decision Making ED Course and Treatment: 12/07/17 Impression: 82 y/o female with left lower quadrant tenderness and soft hernia in abdomen complaining of hematochezia and diarrhea since one day. Plan: -- Chest X-ray -- Urinalysis -- Labs -- EKG -- CT abdomen and pelvis -- Reassess and disposition Progress Notes: EKG: Ordered, reviewed, and independently interpreted the EKG. Rate : 69 BPM Rhythm : NSR Interpretation : RBBB Comparison : No changes from previous EKG 12/07/17 09:15 Chest X-ray: Creator : De Meneses MD COMPARISON:04/20/2017 FINDINGS: LUNGS: No active pulmonary disease. PLEURA: No significant pleural effusion identified, no pneumothorax apparent. CARDIOVASCULAR: Moderate cardiomegaly and moderate vascular congestion OSSEOUS STRUCTURES: No significant abnormalities. VISUALIZED UPPER ABDOMEN: Normal. OTHER FINDINGS: None. IMPRESSION: Moderate cardiomegaly and moderate vascular congestion 12/07/17 10:50 CT abdomen and pelvis: Creator : Sebastián Crabtree MD FINDINGS: LOWER THORAX: Cardiomegaly. Mild bibasilar interstitial/ linear fibrosis in LIVER: Unremarkable. No gross lesion or ductal dilatation. GALLBLADDER AND BILE DUCTS: Gallstones. PANCREAS: Unremarkable. No gross lesion or ductal dilatation. SPLEEN: Unremarkable. ADRENALS: Unremarkable. No mass. KIDNEYS AND URETERS: Multiple bilateral renal cysts. . No hydronephrosis. No solid mass. VASCULATURE: Unremarkable. No aortic aneurysm. BOWEL: Extensive left-sided colonic diverticulosis. No obstruction. No gross mural thickening. APPENDIX: Unremarkable. Normal appendix. PERITONEUM: Unremarkable. No free fluid. No free air. LYMPH NODES: Unremarkable. No enlarged lymph nodes. BLADDER: Unremarkable. REPRODUCTIVE: Hysterectomy. BONES: No acute fracture. OTHER FINDINGS: Ventral hernia repair. IMPRESSION: Extensive colonic diverticulosis without diverticulitis. Cholelithiasis. 12/07/17 14:19 gross blood rectal. h/h stable. accepted by dr benton astorga. pt states gi is dr erickson. - Lab Interpretations Lab Results: 12/07/17 06:40 12/07/17 06:40 Lab Results 12/07/17 06:40: Blood Type O NEGATIVE, Antibody Screen Positive, Antibody Identification Anti D, BBK History Checked Patient has bt 12/07/17 06:40: Sodium 143, Chloride 105, Potassium 4.7, Carbon Dioxide 31, Anion Gap 11, BUN 24 H, Creatinine 1.0, Est GFR ( Amer) > 60, Est GFR ( Non-Af Amer) 53, Random Glucose 120 H, Calcium 9.9, Phosphorus 3.3, Magnesium 2.1, Total Bilirubin 0.6, AST 21, ALT < 6 L, Alkaline Phosphatase 84, Lactate Dehydrogenase 407, Total Creatine Kinase 34 L, Troponin I < 0.01 D, Total Protein 7.4, Albumin 4.2, Globulin 3.3, Albumin/Globulin Ratio 1.3, Lipase 47 12/07/17 06:40: pO2 39, VBG pH 7.31 L, VBG pCO2 65.0 H, VBG HCO3 32.7 H, VBG Total CO2 34.7 H, VBG O2 Sat (Calc) 77.2 H, VBG Base Excess 4.4 H, VBG Potassium 4.4, Sodium 142.0, Chloride 108.0 H, Glucose 117 H, Lactate 0.9, FiO2 21.0, Venous Blood Potassium 4.4 12/07/17 06:40: PT 13.7 H, INR 1.19 12/07/17 06:40: WBC 4.8, RBC 4.82, Hgb 12.5, Hct 39.1, MCV 81.1, MCH 25.9, MCHC 32.0, RDW 15.9 H, Plt Count 176, MPV 8.9, Gran % 59.1, Lymph % (Auto) 30.3, Kleberg % (Auto) 7.7 H, Eos % (Auto) 2.7, Baso % (Auto) 0.2, Gran # 2.83, Lymph # ( Auto) 1.5, Kleberg # (Auto) 0.4, Eos # (Auto) 0.1, Baso # (Auto) 0.01 12/07/17 06:40: Urine Color Yellow, Urine Appearance Clear, Urine pH 6.0, Ur Specific [place] >= 1.030, Urine Protein 100 H, Urine Glucose (UA) Negative, Urine Ketones Negative, Urine Blood Trace-intact H, Urine Nitrate Negative, Urine Bilirubin Negative, Urine Urobilinogen 0.2, Ur Leukocyte Esterase Small H , Urine RBC 0 - 2, Urine WBC 2 - 5, Ur Epithelial Cells 3 - 4, Urine Bacteria Occ I have reviewed the lab results: Yes - RAD Interpretation Radiology Orders: 12/07/17 06:43 CXR [CHEST PORTABLE] [RAD] Stat 12/07/17 07:13 ABD & PELVIS IV CONTRAST ONLY [CT] Stat Rough Planer Tender: Radiologist - EKG Interpretation Interpreted by ED Physician: Yes Type: 12 lead EKG - Scribe Statement The provider has reviewed the documentation as recorded by the Chandaibe Angeli Smith Provider Scribe Attestation: All medical record entries made by the Scribe were at my direction and personally dictated by me. I have reviewed the chart and agree that the record accurately reflects my personal performance of the history, physical exam, medical decision making, and the department course for this patient. I have also personally directed, reviewed, and agree with the discharge instructions and disposition. Disposition/Present on Arrival - Present on Arrival Any Indicators Present on Arrival: No History of DVT/PE: No History of Uncontrolled Diabetes: No Urinary Catheter: No History of Decub. Ulcer: No History Surgical Site Infection Following: None - Disposition Have Diagnosis and Disposition been Completed?: Yes Diagnosis: GI bleed, Rectal bleed Disposition: HOSPITALIZED Disposition Time: 01:00 Condition: FAIR
--- NOTE | 2017-12-07 09:17 | RAD ---
Date of service: 12/07/2017 HISTORY: Abdominal Pain, Lower GI Bleeding COMPARISON: 04/20/2017 FINDINGS: LUNGS: No active pulmonary disease. PLEURA: No significant pleural effusion identified, no pneumothorax apparent. CARDIOVASCULAR: Moderate cardiomegaly and moderate vascular congestion OSSEOUS STRUCTURES: No significant abnormalities. VISUALIZED UPPER ABDOMEN: Normal. OTHER FINDINGS: None. IMPRESSION: Moderate cardiomegaly and moderate vascular congestion
--- NOTE | 2017-12-07 10:48 | CT ---
Date of service: 12/07/2017 PROCEDURE: CT Abdomen and Pelvis without intravenous contrast HISTORY: llq pain/gi bleed h/o of diverticulosis COMPARISON: None. TECHNIQUE: Technique. Contrast dose: Radiation dose: Total exam DLP = mGy-cm. This CT exam was performed using one or more of the following dose reduction techniques: Automated exposure control, adjustment of the mA and/or kV according to patient size, and/or use of iterative reconstruction technique. FINDINGS: LOWER THORAX: Cardiomegaly. Mild bibasilar interstitial/ linear fibrosis in LIVER: Unremarkable. No gross lesion or ductal dilatation. GALLBLADDER AND BILE DUCTS: Gallstones. PANCREAS: Unremarkable. No gross lesion or ductal dilatation. SPLEEN: Unremarkable. ADRENALS: Unremarkable. No mass. KIDNEYS AND URETERS: Multiple bilateral renal cysts. . No hydronephrosis. No solid mass. VASCULATURE: Unremarkable. No aortic aneurysm. BOWEL: Extensive left-sided colonic diverticulosis. No obstruction. No gross mural thickening. APPENDIX: Unremarkable. Normal appendix. PERITONEUM: Unremarkable. No free fluid. No free air. LYMPH NODES: Unremarkable. No enlarged lymph nodes. BLADDER: Unremarkable. REPRODUCTIVE: Hysterectomy. BONES: No acute fracture. OTHER FINDINGS: Ventral hernia repair. IMPRESSION: Extensive colonic diverticulosis without diverticulitis. Cholelithiasis.
[2017-12-07] MEDS ORDERED: Sodium Chloride 0.9% 1,000 ML IV STA (15:26)
[2017-12-07 18:50] LABS: BASO # 0.01 K/mm3 (0.0-2.0); BASO % 0.2 % (0.0-3.0); EOS # 0.2 (0.0-0.7); EOS % 2.6 % (1.5-5.0); GRAN # 3.07 (1.4-6.5); GRAN % 52.6 % (50.0-68.0); LYMPH # 2.2 (1.2-3.4); LYMPH % 37.6 % (22.0-35.0); MEAN CELL VOLUME 80.9 fl (80.0-105.0); MEAN CORPUSCULAR HEMOGLOBIN 25.8 pg (25.0-35.0); MEAN CORPUSCULAR HGB CONC 31.8 g/dl (31.0-37.0); MEAN PLATELET VOLUME 8.8 fl (7.0-11.0); MONO # 0.4 (0.1-0.6); RBC 4.66 10^6/uL (3.5-6.1); RED CELL DISTRIBUTION WIDTH 16.1 % (11.5-14.5); WHITE BLOOD COUNT 5.8 10^3/ul (4.5-11.0)
[2017-12-07] MEDS ORDERED: Pneumococcal 23-Valent Vaccine IM ONE (19:05)
[2017-12-07] MEDS ORDERED: Alum-Mag Hydrox-Simethicone Susp (30 mL) PO ONE (20:16)
--- NOTE | 2017-12-07 20:53 | CARD ---
APPROVED REPORT Date of service: 12/07/2017 EKG Measurement Heart [id number] <Conclusion> Normal sinus rhythm Possible Left atrial enlargement Right bundle branch block Abnormal ECG
[2017-12-07] MEDS: cefTRIAXone 1 gm 1 GM/100 ML BAG IVPB SCH (23:10)
[2017-12-07] MEDS: metroNIDAZOLE IV 500 mg/100 ml 500 MG/100 ML BAG IVPB SCH (23:40)
--- NOTE | 2017-12-08 00:10 | HP ---
Copied To: Brianna Ying MD Attending MD: Brianan Ying MD ADMISSION NOTE HISTORY OF PRESENT ILLNESS: Ms. Olson is an 82-year-old female admitted to the hospital with bright red blood per rectum for 1 day. She has history of hypertension, COPD. No shortness of breath at present. She is complaining of lower abdominal pain. No nausea. No vomiting. No burning in the urine. UA positive in the ER. History of hypertension, blood pressure controlled with current medications. History of diverticulitis in the past. PAST MEDICAL HISTORY: Hypertension, coronary artery disease, COPD, history of pneumonia, history of skin cancer, recurrent fall, osteoarthritis. PAST SURGICAL HISTORY: Orthopedic surgery, eye surgery. FAMILY HISTORY: Noncontributory. PERSONAL HISTORY: Former smoker. SOCIAL HISTORY: Lives at home. ALLERGIES: AZITHROMYCIN, CIPROFLOXACIN, SIMVASTATIN. HOME MEDICATIONS: Cozaar 100 mg daily. REVIEW OF SYSTEMS: As per HPI. Rest of 12-point review of systems reviewed negative. PHYSICAL EXAMINATION: GENERAL: Comfortable in bed, in no acute distress. VITAL SIGNS: Temperature 98.1, heart rate 70 per minute, blood pressure 150 x 78, respiratory rate 18 per minute, oxygen saturation 98% on room air. HEENT: Pallor positive. NECK: No lymphadenopathy. CHEST: Air entry present and equal bilateral. No added sound. CARDIOVASCULAR: S1, S2 normal. No murmur. No gallop. ABDOMEN: Soft, nontender. No hepatosplenomegaly. EXTREMITY: No edema. SPINE: Nontender. SKIN: No petechiae. No rash. CT abdomen and pelvis: Diverticulosis extensive without diverticulitis. Cholelithiasis. No mass lesion in the abdomen. LABORATORY DATA: White count 4.8, hemoglobin 12.5, hematocrit 39.1, platelet 176. Sodium 143, potassium 4.7, BUN 24, creatinine 1, glucose 120. Leukocyte esterase small. ASSESSMENT: 1. Rectal bleeding. 2. Anemia. 3. History of diverticulosis. 4. Lower abdominal pain. 5. Possible urinary tract infection. 6. Hypertension. PLAN: She will be admitted to the hospital, tele monitoring. We will repeat the hemoglobin and hematocrit in 6 hours. Hemoglobin and hematocrit stable. N.p.o. except meds. Losartan 100 mg daily. IV fluid normal saline at 80 mL an hour. IV antibiotic for possible diverticulitis clinically, also plus/minus UTI. UA positive. Ceftriaxone 1 g daily to be given stat. Flagyl 100 mg every 8 hours. ID consultation, Dr. Quintanilla requested for diverticulitis. GI consultation, Dr. Price requested. Discussed with the patient. Discussed with the staff nurse. Brianna Ying MD
[2017-12-08] MEDS: metroNIDAZOLE IV 500 mg/100 ml 500 MG/100 ML BAG IVPB SCH ×3 (06:20→22:12)
[2017-12-08 07:53] LABS: BASO # 0.01 K/mm3 (0.0-2.0); BASO % 0.2 % (0.0-3.0); EOS # 0.2 (0.0-0.7); EOS % 3.8 % (1.5-5.0); GRAN # 2.45 (1.4-6.5); GRAN % 54.6 % (50.0-68.0); HEMOGLOBIN 12.5 g/dL (12.0-16.0); LYMPH # 1.5 (1.2-3.4); LYMPH % 32.7 % (22.0-35.0); MEAN CELL VOLUME 80.8 fl (80.0-105.0); MEAN CORPUSCULAR HEMOGLOBIN 25.8 pg (25.0-35.0); MEAN CORPUSCULAR HGB CONC 31.9 g/dl (31.0-37.0); MONO # 0.4 (0.1-0.6); MONO % 8.7 % (1.0-6.0); RBC 4.85 10^6/uL (3.5-6.1); WHITE BLOOD COUNT 4.5 10^3/ul (4.5-11.0)
[2017-12-08 07:56] VITALS: RESP 20
[2017-12-08 08:08] LABS: ALB/GLOB RATIO 1.1 (1.1-1.8); ALT/SGPT 18 U/L (7-56); AST/SGOT 21 U/L (14-36); BLOOD UREA NITROGEN 18 mg/dL (7-21); CALCIUM 9.5 mg/dL (8.4-10.5); GFR AFRICAN-AMERICAN > 60; GFR NON-AFRICAN AMERICAN > 60
[2017-12-08 08:23] LABS: IRON 46 ug/dL (45-180)
[2017-12-08 08:36] LABS: % IRON SATURATION 14 % (20-55); TOTAL IRON BINDING CAPACITY 316 ug/dL (265-497)
[2017-12-08] MEDS: cefTRIAXone 1 gm 1 GM/100 ML BAG IVPB SCH (11:09)
--- NOTE | 2017-12-08 14:03 | CON ---
Copied To: Jc Price DO Attending MD: Jc Price DO DATE: 12/08/2017 HISTORY OF PRESENT ILLNESS: I saw Ms. Olson this morning. She is an 82-year-old white female known to the [facility] consultant with past medical history of extensive diverticulosis, diverticulitis, coronary artery disease, hypertension, COPD, osteoarthritis. The patient was admitted due to bright red blood per rectum and lower abdominal pain. The patient has extensive network of diverticula in the colon, which she was fully aware of and several days prior to admission, ate nearly a pound of sunflower seeds. Subsequent to this, the patient started developing abdominal pain and some bleeding, about 2 to 3 days prior to admission and subsequently, the bleeding increased. During this time period also, she had been constipated and was straining significantly with stool. The patient did not notice any nausea, vomiting, or hematemesis. The pain rated at bedside today is roughly about 6-7/10. PHYSICAL EXAMINATION: VITAL SIGNS: I reviewed this patient's vital signs. HEENT: Noncontributory. LUNGS: Decreased breath sounds, basilar. HEART: Irregular rhythm. ABDOMEN: Soft, protuberant. Tender in the periumbilical area as well as in the left periumbilical and left lower quadrant and suprapubic areas. The pain during the exam is rated roughly about 6-7/10. DATA: I reviewed this patient's laboratory data, which were significant for white count of 5.8, H and H 12 and 37 with platelet count of 164. Chemistry, noncontributory to current admission. I reviewed the CT scan and the chest x-ray results. The CT was significant for extensive left-sided colonic diverticulosis. 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 She has multiple bilateral renal cysts with no hydronephrosis. OVERALL ASSESSMENT: This is an 82-year-old white female, not compliant with her diet, admitted with probable gastrointestinal bleed secondary to mild diverticulitis, may be also a component of rectal mucosal tear due to excessive straining with bowel movements. THE PATIENT HAS AN ALLERGIC REACTION TO AZITHROMYCIN, CIPRO AND SIMVASTATIN. We will start this patient on ceftriaxone and metronidazole as ordered by Dr. Ying after her IV is reinserted. She should be on an H2 fatuma PPI daily. Note that the dose of Rocephin, should be 1 gram daily and metronidazole 500 every 8 hours. The patient is to have very small volumes of ice chips assuming pain, nausea, and vomiting permit. Jc Price DO, PhD MTDKori
--- NOTE | 2017-12-08 15:41 | CP.PCM.CON ---
History of Present Illness - History of Present Illness History of Present Illness: 82 year old female with PMH of diverticulitis, HTN, COPD, skin cancer, abdominal hernia, history of pneumonia [place] [facility] [place] of blood in her stool for the past 2 days. She initially thought it was nothing, but it recurred over the past 2 days. She also states that she has some lower abdominal pain. She denies nausea or vomiting, no fever or chills, no headache or dizziness, no chest pain, no SOB, no dysphagia, no sore throat. Ct scan of the abdomen and pelvis is showing diverticulosis, Infectious Diseases consult is requested to further evaluate and manage. Review of Systems - Review of Systems All systems: reviewed and no additional remarkable complaints except (as per HPI ) Past Patient History - Infectious Disease Hx of Infectious Diseases: None - Tetanus Immunizations Tetanus Immunization: Unknown - Past Social History Smoking Status: Former Smoker - CARDIAC Hx Cardiac Disorders: Yes Hx Hypercholesterolemia: Yes Hx Hypertension: Yes Hx Peripheral Edema: Yes (ble +1) Other/Comment: protruding veins rle from an "injury" - PULMONARY Hx Respiratory Disorders: Yes Hx Chronic Obstructive Pulmonary Disease (COPD): Yes Hx Pneumonia: Yes (x 6) - NEUROLOGICAL Hx Neurological Disorder: No - HEENT Hx Cataracts: Yes (b/l laser sx) Other/Comment: vocal cord paralysis/dysphagia, pyrea to gums lost all of her teeth wears upper and lower dentures - RENAL Hx Chronic Kidney Disease: No - ENDOCRINE/METABOLIC Hx Endocrine Disorders: No - HEMATOLOGICAL/ONCOLOGICAL Hx Blood Disorders: Yes Hx Cancer: Yes (multiple lesions on face x7 sx's) - INTEGUMENTARY Hx Dermatological Problems: No - MUSCULOSKELETAL/RHEUMATOLOGICAL Hx Falls: Yes (yrs ago) - GASTROINTESTINAL Hx Gastrointestinal Disorders: Yes (obese,) Hx Diverticulitis: Yes (infection) Other/Comment: infection in intestines; abd hernia sx x2 has anothr one but does not want sx, hx c dif in [facility] after one of hernia sx's - GENITOURINARY/GYNECOLOGICAL Hx Genitourinary Disorders: No - PSYCHIATRIC Hx Substance Use: No - SURGICAL HISTORY Hx Surgeries: Yes Hx Hysterectomy: Yes (partial/ hernia post hyst) Hx Orthopedic Surgery: Yes (heel) Other/Comment: laser eye surgery b/l for cataracts, abd hernia sx's x 2, b/l knee replacement - ANESTHESIA Hx Anesthesia: Yes Hx Anesthesia Reactions: Yes Hx Malignant Hyperthermia: No Meds Allergies/Adverse Reactions: Allergies Allergy/AdvReac Type Severity Reaction Status Date / Time azithromycin [From Zithromax] Allergy ITCHING Verified 12/07/17 06:39 ciprofloxacin [From Cipro] Allergy ITCHING Verified 12/07/17 06:39 simvastatin Allergy ITCHING Verified 12/07/17 06:39 - Medications Medications: Current Medications Famotidine (Pepcid) 20 mg IVP DAILY ON LICENSE OF [facility] Last Admin: 12/07/17 16:07 Dose: 20 mg Ceftriaxone Sodium (Rocephin 1 Gram Ivpb) 1 gm in 100 mls @ 100 mls/hr IVPB DAILY [facility] PRN Reason: Protocol Last Admin: 12/07/17 23:10 Dose: Not Given Metronidazole (Flagyl) 500 mg in 100 mls @ 100 mls/hr IVPB Q8 [facility] PRN Reason: Protocol Last Admin: 12/08/17 06:20 Dose: 100 mls/hr Losartan Potassium (Cozaar) 100 mg PO DAILY [facility] Last Admin: 12/08/17 06:43 Dose: 100 mg Physical Exam - Constitutional Appears: Chronically Ill - Head Exam Head Exam: NORMAL INSPECTION - ENT Exam ENT Exam: Mucous Membranes Moist - Neck Exam Neck exam: Negative for: Meningismus - Respiratory Exam Respiratory Exam: Decreased Breath Sounds - Cardiovascular Exam Cardiovascular Exam: +S1, +S2 - GI/Abdominal Exam GI & Abdominal Exam: Soft, Tenderness (mild, LLQ). absent: Distended, Firm, Guarding, Rebound, Rigid Results - Vital Signs Recent Vital Signs: Last Vital Signs Temp 98 F 12/07/17 18:48 Pulse 80 12/07/17 18:48 Resp 18 12/07/17 18:48 BP 130/78 12/07/17 18:48 Pulse Ox 96 12/07/17 17:19 - Labs Result Diagrams: 12/08/17 07:40 12/08/17 07:40 Labs: Laboratory Results - last 24 hr 12/07/17 18:46 WBC 5.8 D RBC 4.66 Hgb 12.0 Hct 37.7 MCV 80.9 MCH 25.8 MCHC 31.8 RDW 16.1 H Plt Count 164 MPV 8.8 Gran % 52.6 Lymph % (Auto) 37.[address] [place] % (Auto) 7.0 H Eos % (Auto) 2.6 Baso % (Auto) 0.2 Gran # 3.07 Lymph # (Auto) 2.2 [place] # (Auto) 0.4 Eos # (Auto) 0.2 Baso # (Auto) 0.01 Assessment & Plan - Assessment and Plan (Free Text) Plan: Assessment abdominal pain with hematochezia, consider due to diverticulosis, R/O diverticulitis, R/O AVM, R/O mass history of diverticulitis HTN COPD skin cancer abdominal hernia history of pneumonia Plan Started Rocephin and Flagyl pending blood cx; follow up GI evaluation and recommendations will monitor clinically
[2017-12-08] MEDS ORDERED: DICLOFENAC 1% TOP PRN (16:59)
[2017-12-08] MEDS: Sodium Chloride 0.45% 1,000 ML IV SCH (23:30)
--- NOTE | 2017-12-08 23:37 | PN ---
Copied To: Brianna Ying MD Attending MD: Brianna Ying MD DATE: 12/08/2017 SUBJECTIVE: She is comfortable in bed in no acute distress. Lower abdominal pain decreased, but she still has discomfort on the left lower quadrant. She is still n.p.o., evaluated by Dr. Price, oven builder. Appreciate the consult. Recommended n.p.o. REVIEW OF SYSTEMS: As per HPI, rest of 12-point review of systems reviewed and negative. MEDICATIONS: Ceftriaxone 1 g daily, Flagyl 500 mg every 8 hours, Pepcid 20 mg daily, losartan 100 mg daily, IV fluids at 80 mL an hour. PHYSICAL EXAMINATION: GENERAL: Comfortable in bed in no acute distress.. VITAL SIGNS: Temperature 98.7, heart rate 68 per minute, blood pressure elevated at 170/97, respiratory rate 20 per minute, oxygen saturation 97% on room air. HEENT: Pallor positive. NECK: No lymphadenopathy. CHEST: Air entry present and equal bilateral. No added sounds. CARDIOVASCULAR: S1, S2 normal. No murmur. No gallop. ABDOMEN: Soft and nontender. No hepatosplenomegaly. EXTREMITIES: No edema. CENTRAL NERVOUS SYSTEM: Alert and oriented x3. No focal, sensory motor deficits. LABORATORY DATA: White count 4.4, hemoglobin 12.5, hematocrit 39.2, platelet 166. Sodium 143, potassium 4, creatinine 0.8, iron 46, iron saturation 14, CEA 2.7, B12 311, bilirubin 0.6. LFTs within normal limits. ASSESSMENT: 1. Melena. 2. Abdominal pain. 3. History of diverticulosis, possible diverticulitis. PLAN: Abdominal pain markedly decreased. We will continue IV fluids at 80 mL an hour. Blood pressure elevated today in 200s. Hydralazine p.r.n. 10 mg every 6 hours. We will continue Cozaar 100 mg daily. We will continue IV antibiotics, ceftriaxone and Flagyl. ID consultation appreciated. Notes reviewed. We will start clear liquid if pain is better by tomorrow. Brianna Ying MD
[2017-12-09] MEDS: metroNIDAZOLE IV 500 mg/100 ml 500 MG/100 ML BAG IVPB SCH ×3 (05:11→21:53)
[2017-12-09 07:10] LABS: BASO # 0.01 K/mm3 (0.0-2.0); BASO % 0.3 % (0.0-3.0); EOS # 0.1 (0.0-0.7); EOS % 3.6 % (1.5-5.0); GRAN # 2.28 (1.4-6.5); GRAN % 57.9 % (50.0-68.0); HEMOGLOBIN 12.3 g/dL (12.0-16.0); LYMPH # 1.1 (1.2-3.4); MEAN CELL VOLUME 80.7 fl (80.0-105.0); MEAN CORPUSCULAR HEMOGLOBIN 25.8 pg (25.0-35.0); MEAN PLATELET VOLUME 9.4 fl (7.0-11.0); MONO # 0.4 (0.1-0.6); MONO % 9.2 % (1.0-6.0); RBC 4.76 10^6/uL (3.5-6.1); RED CELL DISTRIBUTION WIDTH 15.7 % (11.5-14.5); WHITE BLOOD COUNT 3.9 10^3/ul (4.5-11.0)
[2017-12-09 07:24] LABS: ALB/GLOB RATIO 1.2 (1.1-1.8); ALBUMIN 3.8 g/dL (3.0-4.8); ALT/SGPT 14 U/L (7-56); AST/SGOT 24 U/L (14-36); BLOOD UREA NITROGEN 16 mg/dL (7-21); CALCIUM 9.2 mg/dL (8.4-10.5); GFR AFRICAN-AMERICAN > 60; GFR NON-AFRICAN AMERICAN > 60
[2017-12-09] MEDS: cefTRIAXone 1 gm 1 GM/100 ML BAG IVPB SCH (09:13)
--- NOTE | 2017-12-09 11:00 | PN ---
Copied To: Jc Price DO Attending MD: Jc Price DO DATE: 12/09/2017 SUBJECTIVE: I saw Ms. Olson this morning. She is an 82-year-old white female, known to consultants. Admitted with hematochezia, right lower quadrant and left lower quadrant abdominal pain and abdominal distention. Symptoms started after eating large portion of sunflower seeds. Note that in the past the patient has had extensive distal colonic diverticulosis of the descending colon and sigmoid. Symptoms started after consumption of the seeds, which involved initiation of abdominal pain, diarrhea, rectal bleeding, which proceeded to increase over the next couple of days prior to admission. The patient has made progress since she has been here. Pain is somewhat less. Abdomen feels less distended. She still has discomfort noted on pressing the periumbilical area. She has always pressure over the left lower quadrant. There has been no bleeding since she has been in the hospital. PHYSICAL EXAMINATION: VITAL SIGNS: I reviewed this patient's vital signs. HEENT: Noncontributory. LUNGS: Decreased breath sounds, basilar. HEART: Irregular rhythm. ABDOMEN: Soft, protuberant. No tenderness elicited in the right upper or right lower quadrant. Pressing the periumbilical area elicits discomfort in the left lower quadrant and suprapubic. She still has moderate discomfort noted in the left paraumbilical area and the left lower quadrant. I reviewed the notes of the respective consultants including Dr. Ying as well as Dr. Guzmán. LABORATORY DATA: I reviewed the laboratory results. Her H and H are currently stable, . Platelet count 166. Chemistry, noncontributory. She does have some degree of iron deficiency with percent saturation of 14%, ferritin is 50. OVERALL ASSESSMENT: This is an 82-year-old white female with history of extensive left colonic diverticulosis. She made progress on the current regimen, which includes ceftriaxone and metronidazole for subclinical diverticulitis. Even though the CT is negative, but the patient's history and physical examination are consistent with diagnosis. Continue on the same abx. Advise another approximately 1-1/2 to 2 days of IV antibiotics minimum. The patient did fairly well on small volume clears, but had problem with chicken broth yesterday. We will change her diet to very small portions of full liquid if pain, nausea and bleeding permit. The patient has an elevated blood pressure. She is currently on losartan and hydralazine. I reviewed the above with the nurses on the floor including her pressure and overall plan for the diverticulitis. Jc Price DO, PhD YAMEL
--- NOTE | 2017-12-09 17:21 | CP.PCM.PN ---
Subjective - Date & Time of Evaluation Date of Evaluation: 12/09/17 Time of Evaluation: 11:25 - Subjective Subjective: No fevers, abdominal pain is improving, no nausea. Objective - Vital Signs/Intake and Output Vital Signs (last 24 hours): Temp Pulse Resp BP Pulse Ox 98.1 F 65 20 183/94 H 96 12/08/17 07:56 12/08/17 07:56 12/08/17 07:56 12/08/17 07:56 12/08/17 07:56 Intake and Output: 12/08/17 12/08/17 06:59 18:59 Intake Total 0 0 Balance 0 0 - Medications Medications: Current Medications Famotidine (Pepcid) 20 mg IVP DAILY [facility] Last Admin: 12/08/17 11:09 Dose: 20 mg Ceftriaxone Sodium (Rocephin 1 Gram Ivpb) 1 gm in 100 mls @ 100 mls/hr IVPB DAILY [facility] PRN Reason: Protocol Last Admin: 12/08/17 11:09 Dose: 100 mls/hr Metronidazole (Flagyl) 500 mg in 100 mls @ 100 mls/hr IVPB Q8 [facility] PRN Reason: Protocol Last Admin: 12/08/17 14:23 Dose: 100 mls/hr Losartan Potassium (Cozaar) 100 mg PO DAILY [facility] Last Admin: 12/08/17 11:09 Dose: 100 mg - Labs Labs: 12/08/17 07:40 12/08/17 07:40 PT 13.7 SECONDS (9.4-12.5) H 12/07/17 06:40 INR 1.19 12/07/17 06:40 - Constitutional Appears: Non-toxic, Chronically Ill - Head Exam Head Exam: NORMAL INSPECTION - Respiratory Exam Respiratory Exam: Decreased Breath Sounds - Cardiovascular Exam Cardiovascular Exam: +S1, +S2 - GI/Abdominal Exam GI & Abdominal Exam: Soft. absent: Tenderness Assessment and Plan - Assessment and Plan (Free Text) Plan: Assessment abdominal pain with hematochezia, consider due to mild acute diverticulitis, R/ O AVM, R/O mass history of diverticulitis HTN COPD skin cancer abdominal hernia history of pneumonia Plan continue Rocephin and Flagyl day 2 pending final blood cx results; follow up further GI evaluation and recommendations will continue to monitor clinically
[2017-12-09] MEDS: Sodium Chloride 0.45% 1,000 ML IV SCH (18:47)
--- NOTE | 2017-12-09 22:05 | PN ---
Copied To: Brianna Ying MD Attending MD: Brianna Ying MD DATE: 12/09/2017 SUBJECTIVE: She is comfortable in chair in no acute distress. Left lower quadrant pain markedly decreased. She was started on liquid last night and tolerated it well. Evaluated by Dr. Price. EGD planned for Sunday. No melena, no bright red blood per rectum. REVIEW OF SYSTEMS: As per HPI. Rest of 12-point review of systems reviewed and negative. MEDICATIONS: Ceftriaxone 1 g daily, Flagyl 500 mg every 8 hours, Pepcid daily, losartan 100 mg daily, IV fluids at 80 mL an hour. LABORATORY DATA: Reviewed. PHYSICAL EXAMINATION: GENERAL: Comfortable in chair in no acute distress. VITAL SIGNS: Temperature 98.5, heart rate is 68 per minute, blood pressure 180/90, respiratory rate 18 per minute, oxygen saturation 97% room air. HEENT: Pallor positive. NECK: No lymphadenopathy. CHEST: Air entry present and equal bilaterally. No added sounds. CARDIOVASCULAR: S1, S2 normal. No murmur. No gallop. ABDOMEN: Soft, nontender. No hepatosplenomegaly. No rebound tenderness. No left lower quadrant tenderness. EXTREMITIES: No edema. SKIRT MAKER: Alert and oriented x3. No focal, sensory motor deficits. ASSESSMENT: 1. Acute diverticulitis. 2. Gastrointestinal bleed. 3. Uncontrolled hypertension. 4. Anemia, iron deficiency. PLAN: She was started on hydralazine 10 mg every 8 hours, currently on Cozaar 100. Amlodipine 10 mg daily was added to the regimen. We will continue hydralazine p.r.n. every 6 hours for elevated blood pressure more than 160 systolic. We will continue IV antibiotics, ceftriaxone and Flagyl. General condition markedly improved. We will continue IV fluid at 80 mL an hour. We will advance the diet to soft diet if can tolerate, n.p.o. after midnight for EGD tomorrow. Pepcid 20 mg IV daily. Hemoglobin and hematocrit stable. No recent GI bleed during hospitalization. Brianna Ying MD
[2017-12-10] MEDS: metroNIDAZOLE IV 500 mg/100 ml 500 MG/100 ML BAG IVPB SCH (05:12)
[2017-12-10 07:51] VITALS: BP 155/93; PULSE 72; TEMP 97.7; O2SAT 95
[2017-12-10] MEDS: cefTRIAXone 1 gm 1 GM/100 ML BAG IVPB SCH (10:00)
--- NOTE | 2017-12-10 11:01 | PN ---
Copied To: Jc Price DO Attending MD: Jc Price DO DATE: 12/10/2017 SUBJECTIVE: I saw Mrs. Olson this morning. She is an 82-year-old white female. Past medical history of extensive diverticulosis, diverticulitis, coronary artery disease. Admitted with hematochezia and lower abdominal pain. Even though the CT scan was noncontributory, the patient's clinical history and exam suggestive of sub clinical diverticulitis involving the distal descending and sigmoid. The patient is doing well on the current antibiotic therapy, which includes Rocephin 1 g daily as well as metronidazole 500 t.i.d. The patient has not had any bleeding since the day of admission. Pain initially graded 10 in the ER at bedside this morning, roughly about 3-4/10. The patient does not have discomfort when she walks. PHYSICAL EXAMINATION: VITAL SIGNS: I reviewed this patient's vital signs. HEENT: Noncontributory. LUNGS: Decreased breath sounds, basilar. HEART: Irregular rhythm. ABDOMEN: Soft, protuberant. She is still mildly tender in the epigastric area with radiation to the left lower quadrant and also, some tenderness noted in the left lower quadrant and left paraumbilical. Again, this is rated roughly as 3-4/10 on palpation. LABORATORY DATA: I reviewed this patient's laboratory data, which includes the stable H and H. Chemistry noncontributory. Blood cultures essentially negative. OVERALL ASSESSMENT: This is an 82-year-old white female with a history of extensive diverticulosis, in the left colon. Bleeding is mostly diverticular in origin; however, there may have been a component of straining with stool. The patient advanced diet yesterday and she is tolerating that fairly well. We suggest the patient goes home today, and that she complete a total of 14 days that is roughly 10 days more of oral antibiotics, in form of Augmentin 500 b.i.d. plus metronidazole 500 t.i.d. I did suggest to her if she does go home, to intake small portion of soft low-residue diet in addition to significant amount of liquids. She will be following up with Dr. Bagley on the outside. She will be evaluated later by the respective consultants including Dr. Guzmán,. Jc Price DO, PhD YAMEL
--- NOTE | 2017-12-10 22:42 | DS ---
Copied To: Flo Bagley MD Attending MD: Flo Bagley MD HISTORY OF PRESENT ILLNESS: An 82-year-old white female, discharged on 12/10/2017, was admitted on 12/07/2017. The patient was admitted an acute lower GI bleed, diverticular bleed. The patient had no further blood loss in the hospital. She was seen in consultation with Dr. Price. The patient also was hypertensive throughout her stay, was treated with hydralazine, losartan, Lasix and amlodipine. The patient is stable. Abdomen soft. Bowel sounds are normoactive. There is no further bleeding. Hemoglobin is stable at 12.3, white count is 3.9, platelet count is 165. BUN and creatinine are stable. The patient will be discharged home in improved condition. FINAL DISCHARGE DIAGNOSES: Acute GI bleed, diverticular bleeds in the lower bowel, hypertension and hypercholesterolemia. Flo Bagley MD
== END 2017-12-10 10:26 | disposition home or self-care (01) | DRG 378 ==
LOC: ED 06:07 → ERH 11:26 → 3RNO 13:19
PROVIDERS: ADMIT Internal Medicine; ATTEND Internal Medicine
DX: K57.33 Diverticulitis of large intestine without perforation or abscess with bleeding (principal); Z68.42 Body mass index [BMI] 45.0-49.9, adult; I11.9 Hypertensive heart disease without heart failure; E78.00 Pure hypercholesterolemia, unspecified; D50.9 Iron deficiency anemia, unspecified; I25.10 Atherosclerotic heart disease of native coronary artery without angina pectoris; J44.9 Chronic obstructive pulmonary disease, unspecified; K80.20 Calculus of gallbladder without cholecystitis without obstruction; K46.9 Unspecified abdominal hernia without obstruction or gangrene; Z96.653 Presence of artificial knee joint, bilateral; E66.9 Obesity, unspecified; M19.90 Unspecified osteoarthritis, unspecified site; Z85.828 Personal history of other malignant neoplasm of skin; Z87.01 Personal history of pneumonia (recurrent); Z87.891 Personal history of nicotine dependence; Z88.1 Allergy status to other antibiotic agents

== ENCOUNTER 2018-08-26 12:33 | Outpatient (CLI) | payer MEDICARE | END 2018-08-26 12:34 | disposition home or self-care (01) | LOC: RAD 12:33 ==